=== PATIENT | female | born 1985 | race Caucasian/White ===

== ENCOUNTER 2020-07-02 05:41 | Day surgery (SDC) | payer OTHER, SELFPAY ==
[2020-06-27 11:56] LABS: BASOPHILS # (AUTO) 0.1 K/uL (0.00-0.22); BASOPHILS % (AUTO) 0.8 % (0.0-2.0); EOSINOPHILS # (AUTO) 0.1 K/uL (0-0.4); EOSINOPHILS % (AUTO) 1.2 % (0.0-4.0); HEMATOCRIT 38.7 % (36-48); LYMPHOCYTES # (AUTO) 2.2 K/uL (2.5-16.5); LYMPHOCYTES % (AUTO) 21.5 % (20.5-51.1); MEAN CORPUSCULAR HEMOGLOBIN 29 pg (27-31); MEAN CORPUSCULAR HGB CONC 33 g/dL (33-37); MEAN CORPUSCULAR VOLUME 85.2 fL (80-94); MONOCYTES # (AUTO) 0.5 K/uL (0.8-1.0); MONOCYTES % (AUTO) 4.8 % (1.7-9.3); NEUTROPHILS # (AUTO) 7.2 K/uL (1.8-7.7); NEUTROPHILS % (AUTO) 71.7 % (42.2-75.2); PLATELET COUNT (AUTO) 321 K/uL (140-450); RED BLOOD CELL COUNT(AUTO) 4.55 MIL/uL (4.20-5.40); RED CELL DISTRIBUTION WIDTH 13.4 % (11.6-13.7)
[2020-06-27 12:19] LABS: ALBUMIN 3.7 g/dL (3.4-5.0); ANION GAP 11.5 (8-16); CARBON DIOXIDE 25.4 mmol/L (21-32); CREATININE 0.7 mg/dL (0.6-1.3); POTASSIUM 3.9 mmol/L (3.5-5.1); TOTAL BILIRUBIN 0.5 mg/dL (0.0-1.0)
[~2020-07-02] VITALS: Ht 160 cm; Wt 128.8 kg
[2020-07-02] MEDS ORDERED: ETOMIDATE 20 MG/10 ML VIAL IVP ONE ×2 (07:53→08:33)
[2020-07-02] MEDS ORDERED: oxyCODONE/APAP 5/325 MG 1 TAB TAB PO PRN (08:15)
[2020-07-02] MEDS ORDERED: ONDANSETRON 4 MG/2 ML VIAL IVP PRN (08:15)
[2020-07-02] MEDS ORDERED: MEPERIDINE 25 MG/ML SYR IVP PRN (08:15)
[2020-07-02] MEDS ORDERED: fentaNYL citrate 0.05 MG/ML VIAL IVP PRN (08:15)
[2020-07-02] MEDS ORDERED: diphenhydrAMINE 50 MG/ML VIAL IVP PRN (08:15)
[2020-07-02] MEDS ORDERED: LACTATED RINGERS 1,000 ML IV SCH (08:15)
[2020-07-02] MEDS ORDERED: MEPERIDINE 25 MG/ML SYR ONE (08:33)
[2020-07-02] MEDS ORDERED: GLYCOPYRROLATE 0.2 MG/ML VIAL ONE (08:33)
[2020-07-02] MEDS ORDERED: KETOROLAC 30 MG/ML VIAL ONE (08:33)
[2020-07-02] MEDS ORDERED: fentaNYL citrate 0.05 MG/ML VIAL ONE (08:33)
[2020-07-02] MEDS ORDERED: LIDOCAINE 2% 100 MG/5 ML SYR IVP ONE (08:33)
[2020-07-02] MEDS ORDERED: PROPOFOL 200 MG/20 ML VIAL IV ONE (08:33)
[2020-07-02] MEDS ORDERED: ONDANSETRON 4 MG/2 ML VIAL ONE (08:33)
[2020-07-02] MEDS ORDERED: METOCLOPRAMIDE 10 MG/2 ML INJ VIAL ONE (08:33)
[2020-07-02] MEDS ORDERED: SEVOFLURANE 250 ML BTL INH ONE (08:33)
[2020-07-02] MEDS ORDERED: SUCCINYLCHOLINE CHLORIDE 200 MG/10 ML VIAL IVP ONE (08:33)
[2020-07-02] MEDS ORDERED: NEOSTIGMINE 1:1000 10 MG/10 ML VIAL ONE (08:33)
[2020-07-02] MEDS ORDERED: ROCURONIUM 50 MG/5 ML VIAL IV ONE (08:33)
== END 2020-07-02 11:30 | disposition home or self-care (01) ==
LOC: MOR 05:41 → MFCC 06:07 → MOR 11:30
PROVIDERS: ATTEND Obstetrics & Gynecology
DX: N93.9 Abnormal uterine and vaginal bleeding, unspecified (principal); N92.0 Excessive and frequent menstruation with regular cycle; D25.0 Submucous leiomyoma of uterus; I10 Essential (primary) hypertension; E03.9 Hypothyroidism, unspecified; E11.9 Type 2 diabetes mellitus without complications; E66.01 Morbid (severe) obesity due to excess calories; Z90.49 Acquired absence of other specified parts of digestive tract; Z20.828 Contact with and (suspected) exposure to other viral communicable diseases
CPT/HCPCS: 36415; 58563; 80053; 81025; 84702; 85025; J0330; J1885; J2001; J2175; J2405; J2704; J2710; J2765; J3010; J3490; J7030; U0003